=== PATIENT | male | born 1955 | race Caucasian/White ===

== ENCOUNTER 2020-09-18 10:13 | Emergency (ER) | payer OTHER ==
[~2020-09-18] VITALS: Ht 185.4 cm; Wt 110.0 kg
--- NOTE | 2020-09-18 10:38 | NUR ---
First contact with pt. Dr. Bal at bedside to evaluate pt. Pt c/o cough, diffuse CP only when coughing x2 days. Pt speaking in full sentences, resp even and unlabored. Pt placed in gown, positioned for comfort in bed. Continuous heart, oxygen and BP monitors applied, all safety measures observed.
[2020-09-18 11:39] VITALS: BP 121/61
== END 2020-09-18 11:41 | disposition home or self-care (01) ==
LOC: ED 11:21
DX: B34.9 Viral infection, unspecified (principal); Z20.828 Contact with and (suspected) exposure to other viral communicable diseases; I48.91 Unspecified atrial fibrillation; I10 Essential (primary) hypertension; Z87.891 Personal history of nicotine dependence
CPT/HCPCS: 71045; 87635; 93005; 99285